=== PATIENT | female | born 1995 | race African-American/Black ===

== ENCOUNTER 2017-05-06 09:31 | Emergency (ER) | payer BC ==
--- NOTE | 2017-05-06 09:47 | ERNOTE ---
ENT HPI Date of Service: 05/06/17 Presenting Symptoms: other - ear pain Time Seen by Provider: 05/06/17 09:45 Source: patient - Immun/Allergies/Home Medications Immunizations: IMMUNIZATION HX Immunizations Up to Date Yes History of Influenza Vaccine No Hx Pneumococcal Vaccination No Allergies/Adverse Reactions: Allergies Allergy/AdvReac Type Severity Reaction Status Date / Time No Known Allergies Allergy Verified 05/06/17 09:38 Home Medications: HOME MEDICATIONS Acetaminophen with Codeine [Tylenol with Codeine #3 Tablet] 1 each PO Q6H PRN # 24 tab 05/06/17 [Last Taken Unknown] Amox Tr/Potassium Clavulanate [Augmentin 875-125 Tablet] 875 mg PO BID #20 tablet 05/06/17 [Last Taken Unknown] Chlorhexidine Gluconate [Peridex 0.12%] 15 ml MM BID #473 ml 05/06/17 [Last Taken Unknown] - History of Present Illness Narrative: Patient presents with a few days of increased left ear pain and jaw pain, now she is able to localize to the lower molar area of her mouth Date (Duration): 05/01/17 Severity: Present: severe ENT Location: Present: ear (L), mouth, dental Prearrival Treatment: Present: no prearrival treatment Modifying Factors - Improves: Reports: medication Modifying Factors - Worsens: Reports: other - eating and chewing Associated Symptoms - ENT: Reports: malaise, poor solid intake, headache, other - ear pian . Denies: fever Prior Treament: Reports: other - no prior dental visits - Patient's Past Medical History Patient History - Medical: No pertinent hx Patient History - Cardiac/Respiratory: No pertinent hx Patient History - Cancer: No Hx of Cancer Patient History - Surgical Procedures: Patient History - Other: None LMP (females 10-50): last week LMP (Calendar): 04/19/17 - Social History Living Situations: home Abuse History: No History of abuse Psych History: No pertinent hx Smoking Status: Current every day smoker Have you smoked in the past 12 months: Yes Do you dip or chew tobacco: No Alcohol Use: none Drug Use: none - Immunizations Immunizations Up to Date: Yes Hx Pneumococcal Vaccination: No History of Influenza Vaccine: No Physical Exam - Physical Exam General Appearance: Present: wd/wn, alert, moderate distress - due to pain Head Exam: Present: normal inspection, no evidence of injury Eye Exam: Normal inspection: bilateral, PERRL: bilateral, EOMI: bilateral Ears, Nose, Throat: Present: normal ENT inspection, other - dental exam reveals 2nd molar on lower left has severe cracks and gingival erythema. Very tender to palpation Neck: Present: lymphadenopathy (L). Absent: thyromegaly Respiratory: Present: no respiratory distress, normal breath sounds Cardiovascular/Chest: Present: regular rate, rhythm, no murmur Gastrointestinal/Abdominal: Present: normal bowel sounds, nontender, nondistended Extremity Exam: Present: normal inspection, normal range of motion Neurological Exam: Present: alert, oriented, normal mood/affect Skin Exam: Present: normal color, warm/dry ED Progress - Vital Signs Vital Signs: Vital Signs 05/06/17 09:38 Temperature 36.5 C Pulse Rate 98 Respiratory 14 Rate Blood Pressure 113/58 O2 Sat by Pulse 100 Oximetry - EKG EKG: NSR - Progress/Reassessment Chief Complaint: Dental Problem Progress:: Improved - Transfer of Care Expected Disposition: Discharge Plan - Plan Plan: HCG is negative : rx for augmentin and tylenol #3 and peridex rinse and close followup with [facility]. [id number] [place] [address] Toll-Free Toradol 30 mg IM for pain control in Ed was given Departure Clinical Impression: Cracked tooth syndrome, Gingivitis due to dental plaque, Partial loss of tooth due to caries - Departure Disposition: Home self-care Condition: Fair Instructions: Tooth Injuries, [id number], Dental Abscess, [id number] Additional Instructions: use the peridex rinse for infection control take all of the medication [address] [id number] Toll-Free call for an appointment for extraction of diseased tooth. Prescriptions: Acetaminophen with Codeine [Tylenol with Codeine #3 Tablet] 1 each PO Q6H PRN # 24 tab PRN Reason: Pain Amox Tr/Potassium Clavulanate [Augmentin 875-125 Tablet] 875 mg PO BID #20 tablet Chlorhexidine Gluconate [Peridex 0.12%] 15 ml MM BID #473 ml
[2017-05-06] MEDS ORDERED: KETOROLAC TROMETHAMINE 30 MG/ML VIAL IM ONE (10:26)
[2017-05-06] MEDS ORDERED: KETOROLAC TROMETHAMINE 30 MG/ML VIAL ONE (10:28)
[2017-05-06 10:43] VITALS: BP 110/66
== END 2017-05-06 10:41 | disposition home or self-care (01) ==
LOC: ER 09:31
DX: K03.81 Cracked tooth (principal); K05.10 Chronic gingivitis, plaque induced; K08.439 Partial loss of teeth due to caries, unspecified class; F17.200 Nicotine dependence, unspecified, uncomplicated
CPT/HCPCS: 84703; 96372; 99284